=== PATIENT | male | born 1975 | race Caucasian/White ===

== ENCOUNTER 2018-03-09 11:31 | Inpatient (IN) | payer OTHER ==
[~2018-03-09] VITALS: Ht 157.5 cm; Wt 74.8 kg
[~2018-03-09 11:31] MED LIST: OXYC-133 PO; RIFA300C4 PO; SULF1TAB48 PO
--- NOTE | 2018-03-09 11:45 | NUR ---
PT BIB SELF, C/O ABSCESS TO LEFT AC POST HEROIN INJECTION X 2 DAYS AGO. ALERT AND ORIENTED X 4, VERBALLY RESPONSIVE AND ABLE TO MAKE NEEDS KNOWN. ON ROOM AIR, BREATHING EVENLY AND UNLABORED. AMBULATORY WITH STEADY GAIT. CONNECTED TO THE MONITOR AND PULSE OX. KEPT COMFORTABLE, WILL CONTINUE TO MONITOR ACCORDINGLY.
[2018-03-09] MEDS ORDERED: LIDOCAINE 1%-EPI 1:100,000 20 ML VIAL ONE (11:58)
[2018-03-09] MEDS ORDERED: VANCOMYCIN 1 GM in IV D5W 250 ML IV ONE (12:00)
[2018-03-09] MEDS ORDERED: PIPERACILLIN /TAZOBACTAM 3.375 G in IV D5W 50 ML IV ONE (12:00)
[2018-03-09 12:16] LABS: BASOPHILS # (AUTO) 0.1 /CMM (0.0-0.2); BASOPHILS % (AUTO) 0.7 % (0.0-2.0); EOSINOPHILS % (AUTO) 1.1 % (0.0-6.0); HEMATOCRIT 40 % (39-51); HEMOGLOBIN 13.6 g/dL (13.5-17.5); LYMPHOCYTES % (AUTO) 15.9 % (20.0-44.0); MEAN CORPUSCULAR HGB CONC 34 g/dl (31.0-36.0); MEAN CORPUSCULAR VOLUME 89 fL (80-96); MONOCYTES # (AUTO) 0.8 /CMM (0.1-1.30); MONOCYTES % (AUTO) 6.2 % (2.0-12.0); NEUTROPHILS # (AUTO) 9.4 /CMM (1.8-8.9); NEUTROPHILS % (AUTO) 76.1 % (43.0-81.0); PLATELET COUNT (AUTO) 280 /CMM (150-450); RED BLOOD CELL COUNT(AUTO) 4.51 MIL/uL (4.5-6.0); WHITE BLOOD COUNT (AUTO) 12.4 K/uL (4.3-11.0)
[2018-03-09 12:29] LABS: CALCIUM, SERUM 8.2 mg/dL (8.5-10.1); CARBON DIOXIDE 26 mmol/L (21-32); CHLORIDE 100 mmol/L (98-107); CREATININE 0.9 mg/dL (0.6-1.3); GLUCOSE 96 mg/dL (74-106); POTASSIUM 4.1 mmol/L (3.5-5.1); SODIUM SERUM 135 mmol/L (136-145); UREA NITROGEN, BLOOD 8 mg/dL (7-18)
[2018-03-09 12:34] LABS: ALANINE AMINOTRANSFERASE 30 U/L (12-78); ALBUMIN 2.5 g/dL (3.4-5.0); ALKALINE PHOSPHATASE 62 U/L (46-116); ASPARTATE AMINOTRANSFERASE 28 U/L (15-37); BILIRUBIN,DIRECT 0.1 mg/dL (0.0-0.2); BILIRUBIN,TOTAL 0.6 mg/dL (0.2-1.0); TOTAL PROTEIN, SERUM 6.9 g/dL (6.4-8.2)
[2018-03-09] MEDS ORDERED: HYDROMORPHONE INJ 0.5 MG/0.5 ML SYRINGE IV ONE (13:30)
[2018-03-09] MEDS ORDERED: HYDROMORPHONE INJ 2 MG/ML DISP.SYRIN ONE (13:30)
--- NOTE | 2018-03-09 13:36 | NUR ---
RECEIVED A CALL FROM PIPEFITTER HELPER FOR BED. PT IS GOING TO ROOM 314-1 M.
--- NOTE | 2018-03-09 14:08 | NUR ---
called [facility] and spoke to brooklyn QIU and report given for sivakumar.
[2018-03-09 14:15] VITALS: BP 152/84
--- NOTE | 2018-03-09 14:47 | NUR ---
patient wheeled via wheelchair in no apparent distress noted. going to room [address] [place] [address].
--- NOTE | 2018-03-09 14:50 | NUR ---
BELLHOP SERVICE CAPTAIN RECEIVED PATIENT FROM E.R. DEPT, A/OX4, AMBULATORY, SKIN ASSESSMENT ALLOWED BY PATIENT BUT ONLY ON BILATERAL ARMS, PATIENT REFUSED TO REMOVED PACKING ON THE LEFT AC DUE TO PAIN, PHOTOS TAKEN AND PLACED IN CHART, DRESSING RE-INFORCED, PATIENT ALSO REFUSED TO CHANGE INTO A GOWN AND TO HAVE BODY CHECK ON THE REST OF HIS BODY. HE STATED HE'S HAVING A HARD TIME MOVING DUE TO HIS LEFT ARM. EXPLAINED PROTOCOL, PATIENT VERBALIZED UNDERSTANDING, BUT HE SAID, "LATER". NEEDS ATTENDED AND MET, CALL LIGHT WITHIN REACH, WILL CONTINUE TO MONITOR.
[2018-03-09] MEDS ORDERED: ONDANSETRON HCL/PF 4 MG/2 ML VIAL IVP PRN (16:00)
[2018-03-09] MEDS ORDERED: Z GUARD REMEDY 2 OZ OINT TP PRN (16:00)
[2018-03-09] MEDS ORDERED: ZOLPIDEM TARTRATE 5 MG TABLET PO PRN (16:00)
[2018-03-09] MEDS ORDERED: MAGNESIUM HYDROXIDE 30 ML UDC PO PRN (16:00)
[2018-03-09] MEDS ORDERED: MAG HYDROX/AL HYDROX/SIMETH 30 ML UDC PO PRN (16:00)
[2018-03-09] MEDS ORDERED: ACETAMINOPHEN 325 MG TABLET PO PRN (16:00)
[2018-03-09] MEDS ORDERED: FEE PK DOSING 1 MIN EA MC ONE (16:31)
[2018-03-09] MEDS: NICOTINE PATCH (21MG) 21 MG PATCH.TD24 TD SCH (16:50)
[2018-03-09] MEDS: KETOROLAC TROMETHAMINE INJ 30 MG/ML VIAL IM PRN (16:50)
[2018-03-09] MEDS: PIPERACILLIN /TAZOBACTAM 3.375 G in IV D5W 50 ML IV SCH (18:17)
--- NOTE | 2018-03-09 18:34 | NUR ---
RN NOTES PATIENT A/OX4, BREATHING EVEN AND UNLABORED, NO SOB NOTED. PER PATIENT, FRIENDS ARE COMING OVER AND WILL BRING CIGARETTES. EXPLAINED RISKS OF SMOKING AT THIS TIME. BUT PATIENT IS INSISTING. PT STILL REFUSING TO HAVE BODY SKIN CHECKS, AND REFUSING TO WEAR A GOWN. NEEDS ATTENDED AND MET, CALL LIGHT WITHIN REACH, WILL ENDORSE TO WAREHOUSEMAN FOR OPAL.
--- NOTE | 2018-03-09 19:20 | NUR ---
RN OPENING NOTES PT AWAKE AND RESTING IN BED. PT COMPLAINS OF LEFT AC PAIN. WILL ADDRESS PT PAIN MANAGEMENT. NO COMPLAINTS OF SOB OR DISTRESS AT THIS TIME. PT HAS A RIGHT HAND #22 INTACT AND PATENT. NO COMPLAINTS OF PAIN, SOB OR DISTRESS AT THIS TIME. SAFETY PRECAUTIONS IN PLACE, BED IN LOWEST LOCKED POSITION, X2 SIDE RAILS UP AND CALL LIGHT WITHIN REACH. WILL CONTINUE TO MONITOR.
[2018-03-09] MEDS: HYDROCODONE/APAP 5/325MG 1 EACH TABLET PO PRN (19:48)
[2018-03-09 20:00] VITALS: BP 156/72
[2018-03-09] MEDS: VANCOMYCIN 1 GM in IV D5W 250ml IV SCH (21:00)
[2018-03-09] MEDS: LORAZEPAM INJ 2 MG/ML VIAL IV PRN (21:07)
[2018-03-10] MEDS: PIPERACILLIN /TAZOBACTAM 3.375 G in IV D5W 50 ML IV SCH ×3 (00:13→13:05)
[2018-03-10] MEDS: VANCOMYCIN 1 GM in IV D5W 250ml IV SCH (04:05)
--- NOTE | 2018-03-10 06:49 | NUR ---
RN CLOSING NOTES PT RESTING IN BED. NO COMPLAINTS OF PAIN, SOB OR DISTRESS AT THIS TIME. PT HAS A RIGHT HAND #22 INTACT AND PATENT. ALL PATIENT NEEDS MET OVERNIGHT. PT REQUESTED ATIVAN FOR ANXIETY, AND ZOFRAN FOR NAUSEA OVERNIGHT. SAFETY PRECAUTIONS IN PLACE, BED IN LOWEST LOCKED POSITION, X2 SIDE RAILS UP AND CALL LIGHT WITHIN REACH. WILL ENDORSE TO DAY SHIFT NURSE FOR CONTINUITY OF CARE.
--- NOTE | 2018-03-10 07:15 | NUR ---
RN OPENING NOTES RECEIVED PATIENT IN BED RESTING. A/OX3, ABLE TO MAKE NEEDS KNOWN. NOT IN ANY FORM OF DISTRESS, NO SOB. JUST MEDICATED WITH PAIN MEDS BY UYEN KENNEDY. STILL REFUSED BODY CHECK AND DOESNT WANT TO WEAR A GOWN, STILL ON HIS REGULAR CLOTHES, EXPLAINED PROTOCOL BUT STILL REFUSED, HE STATED "LATER MAN, IM TIRED.". IV ACCESS INTACT AND PATENT. KEPT PATIENT SAFE AND COMFORTABLE. BED IN LOW/LOCKED POSITION, SIDERAILS UPX2 WITH PADDING FOR SEIZURE PRECAUTIONS. CALL LIGHT IN REACH. WILL CONTINUE TO MONITOR ACCORDINGLY.
[2018-03-10] MEDS: PANTOPRAZOLE 40 MG TABLET.DR PO SCH (07:18)
[2018-03-10] MEDS: KETOROLAC TROMETHAMINE INJ 30 MG/ML VIAL IM PRN ×3 (07:18→20:10)
[2018-03-10 07:35] LABS: BASOPHILS # (AUTO) 0.1 /CMM (0.0-0.2); BASOPHILS % (AUTO) 0.6 % (0.0-2.0); EOSINOPHILS % (AUTO) 2.5 % (0.0-6.0); HEMATOCRIT 41 % (39-51); HEMOGLOBIN 13.8 g/dL (13.5-17.5); LYMPHOCYTES # (AUTO) 1.7 /CMM (0.8-4.8); LYMPHOCYTES % (AUTO) 20.8 % (20.0-44.0); MEAN CORPUSCULAR HGB CONC 33 g/dl (31.0-36.0); MEAN CORPUSCULAR VOLUME 90 fL (80-96); MONOCYTES # (AUTO) 0.5 /CMM (0.1-1.30); MONOCYTES % (AUTO) 5.5 % (2.0-12.0); NEUTROPHILS # (AUTO) 5.9 /CMM (1.8-8.9); NEUTROPHILS % (AUTO) 70.6 % (43.0-81.0); PLATELET COUNT (AUTO) 282 /CMM (150-450); RED BLOOD CELL COUNT(AUTO) 4.58 MIL/uL (4.5-6.0); WHITE BLOOD COUNT (AUTO) 8.4 K/uL (4.3-11.0)
[2018-03-10 08:00] VITALS: BP 159/88
[2018-03-10 08:04] LABS: ALBUMIN 2.4 g/dL (3.4-5.0); BILIRUBIN,TOTAL 0.5 mg/dL (0.2-1.0); CALCIUM, SERUM 8.5 mg/dL (8.5-10.1); CREATININE 1.2 mg/dL (0.6-1.3); MAGNESIUM 2.3 mg/dL (1.8-2.4); PHOSPHORUS 3.3 mg/dL (2.5-4.9); POTASSIUM 3.8 mmol/L (3.5-5.1); TOTAL PROTEIN, SERUM 6.8 g/dL (6.4-8.2)
[2018-03-10 08:15] LABS: BILIRUBIN,DIRECT 0.1 mg/dL (0.0-0.2)
[2018-03-10] MEDS: NICOTINE PATCH (21MG) 21 MG PATCH.TD24 TD SCH (08:28)
[2018-03-10] MEDS: LORAZEPAM INJ 2 MG/ML VIAL IV PRN ×2 (11:04→20:49)
--- NOTE | 2018-03-10 11:28 | NUR ---
WOUND CARE CONSULT: PT PRESENTS WITH WOUND TO LEFT ANTECUBITAL AREA, S/P I&D IN E.R. RECOMMEND SURGICAL CONSULT/FOLLOW UP. PT IS AMBULATORY AND CONTINENT. PT REFUSED TO HAVE WOUND PACKED AT THIS TIME AND STATED "MAYBE LATER". WILL SEE PRN.
[2018-03-10] MEDS ORDERED: MORPHINE SULFATE INJ 2 MG/ML DISP.SYRIN IV ONE (12:00)
--- NOTE | 2018-03-10 12:00 | NUR ---
WOUND DEBRIDEMENT DONE BY DR RICHARDSON AND JOSE BUCK. PATIENT TOLERATED WELL. CONSENT SIGNED.
[2018-03-10] MEDS ORDERED: HYDROMORPHONE INJ 2 MG/ML DISP.SYRIN IV ONE (12:30)
[2018-03-10] MEDS ORDERED: VANCOMYCIN 0.75 GM in IV D5W 250 ML IV SCH (14:00)
--- NOTE | 2018-03-10 14:29 | NUR ---
Social service consult requested by Dr. Sharma for drug abuse. Pt. is a 42 year old male who was admitted to [facility] for cellulitis. CONCHITA met with pt. bedside. Pt. is alert and oriented x 4. Pt's came to [facility] complaining of left upper extremity pain after injecting heroin. Pt. lives with couple of friends at [address] [place] [address] in [facility]. Pt. has no emergency contact at this time. Pt's drug of choice is Heroin and he last used two days ago. Pt. also drinks a pint of vodka daily. Pt. smokes a pack of cigarettes per day. Pt. has prior history of attending a drug treatment program but is unable to provide more information regarding when and where. CONCHITA offered pt. alcohol and drug treatment programs, however pt. declined stating he has been accepted at [facility] and will be going there once he is discharged from the hospital. Pt.states he has a diagnosis of Depression and Anxiety but is not currently on any medication for it. Pt. denies suicidal and homicidal ideations and visual/auditory hallucinations at this time. No other social service needs are requested at this time. CONCHITA updated watch caser Nancie Green regarding pt's discharge plan. SW is available, if needed.
[2018-03-10 15:34] VITALS: BP 149/83
[2018-03-10] MEDS: LACTOBACILLUS RHAMNOSUS GG 1 EACH CAP.SPRINK PO SCH (16:33)
--- NOTE | 2018-03-10 18:30 | NUR ---
PATIENT REPORTED THAT HIS IV ACCESS GOT PULLED OUT. CHECKED IV CATHETER INTACT. APPLIED PRESSURE, NO BLEEDING, NO COMPLICATIONS.
--- NOTE | 2018-03-10 18:55 | NUR ---
ATTEMPTED TO INSERT NEW IV ACCESS BUT UNSUCCESSFUL. PATIENT IS HARD STICK. WILL ENDORSED TO NIGHT RN.
--- NOTE | 2018-03-10 19:31 | NUR ---
PATIENT IN STABLE CONDITION. ALL NEEDS ATTENDED AND PROVIDED, ALL DUE MEDICATIONS ADMINISTERED ORDERED. KEPT PATIENT SAFE AND COMFORTABLE. BED IN LOW/LOCKED POSITION, SIDERAILS UPX2, CALL LIGHT IN REACH. ENDORSED TO NIGHT RN FOR OPAL
--- NOTE | 2018-03-10 19:35 | NUR ---
MS RN NOTE: PATIENT RESTING IN BED, NO ACUTE DISTRESS NOTED, FRIEND AT BEDSIDE. BREATHING EVEN AND UNLABORED, NO SOB NOTED. PATIENT NEEDS NEW IV, WILL TRY TO START IV. BED LOCKED AND IN LOWEST POSITION, CALL LIGHT IN REACH. WILL CONTINUE TO MONITOR.
[2018-03-10 20:00] VITALS: BP 131/78
--- NOTE | 2018-03-10 20:15 | NUR ---
MS RN NOTE: NEW IV STARTED TO RIGHT HAND #22 WITH GOOD BLOOD RETURN. PATIENT COMPLAINS OF PAIN TO LEFT ARM 9/10, TORADOL 30MG IM GIVEN PER MD ORDER. WILL CONTINUE TO MONITOR.
[2018-03-10] MEDS: CLINDAMYCIN 600 MG in IV D5W 50 ML IV SCH (20:30)
--- NOTE | 2018-03-10 21:00 | NUR ---
MS RN NOTE: PATIENT COMPLAINS OF ANXIOUS/WITHDRAWAL, ATIVAN 1MG IV GIVEN PER MD ORDER. WILL CONTINUE TO MONITOR.
[2018-03-11] MEDS: CLINDAMYCIN 600 MG in IV D5W 50 ML IV SCH ×3 (04:19→20:17)
[2018-03-11] MEDS: LORAZEPAM INJ 2 MG/ML VIAL IV PRN ×4 (04:19→22:33)
--- NOTE | 2018-03-11 04:20 | NUR ---
MS RN NOTE: PATIENT COMPLAINS OF ANXIOUS/WITHDRAWAL, ATIVAN 1MG IV GIVEN PER MD ORDER. WILL CONTINUE TO MONITOR.
--- NOTE | 2018-03-11 06:05 | NUR ---
MS RN NOTE: PATIENT RESTING IN BED, NO ACUTE DISTRESS NOTED, FRIEND AT BEDSIDE. BREATHING EVEN AND UNLABORED, NO SOB NOTED. IV TO RIGHT HAND IN PLACE. BED LOCKED AND IN LOWEST POSITION, CALL LIGHT IN REACH. WILL ENDORSE TO DAY NURSE TO CONTINUE WITH PLAN OF CARE.
[2018-03-11 07:06] LABS: BASOPHILS % (AUTO) 0.4 % (0.0-2.0); EOSINOPHILS % (AUTO) 0.7 % (0.0-6.0); HEMATOCRIT 36 % (39-51); HEMOGLOBIN 12.3 g/dL (13.5-17.5); LYMPHOCYTES # (AUTO) 1.8 /CMM (0.8-4.8); LYMPHOCYTES % (AUTO) 22.7 % (20.0-44.0); MEAN CORPUSCULAR HGB CONC 34 g/dl (31.0-36.0); MEAN CORPUSCULAR VOLUME 89 fL (80-96); MONOCYTES # (AUTO) 0.3 /CMM (0.1-1.30); MONOCYTES % (AUTO) 3.8 % (2.0-12.0); NEUTROPHILS # (AUTO) 5.6 /CMM (1.8-8.9); NEUTROPHILS % (AUTO) 72.4 % (43.0-81.0); PLATELET COUNT (AUTO) 284 /CMM (150-450); RED BLOOD CELL COUNT(AUTO) 4.04 MIL/uL (4.5-6.0); WHITE BLOOD COUNT (AUTO) 7.8 K/uL (4.3-11.0)
[2018-03-11 07:17] LABS: MAGNESIUM 1.8 mg/dL (1.8-2.4); PHOSPHORUS 3.5 mg/dL (2.5-4.9); POTASSIUM 3.6 mmol/L (3.5-5.1)
[2018-03-11] MEDS: PANTOPRAZOLE 40 MG TABLET.DR PO SCH (07:30)
--- NOTE | 2018-03-11 07:34 | NUR ---
MS/RN OPENING NOTE PATIENT IN BED ASLEEP, EASILY AROUSABLE. A/O X 3. NO SIGNS OF ACUTE DISTRESS. NO COMPLAIN OF PAIN OR DISCOMFORT. ALL NEEDS ATTENDED TO. CALL LIGHT WITHIN REACH. WILL CONTINUE TO MONITOR TO ENSURE SAFETY.
[2018-03-11 08:00] VITALS: BP 153/61
--- NOTE | 2018-03-11 08:00 | NUR ---
MS/RN PATIENT REFUSED VITALS SIGNS AND MORNING MEDICATIONS OFFERED X 3 WITH RISKS AND BENEFITS EXPLAINED, CONTINUE TO REFUSE AND WANTED TO SLEEP ONLY. WILL NOTIFY DR. CHANI Crowe FOR FURTHER ORDERS.
[2018-03-11] MEDS: LACTOBACILLUS RHAMNOSUS GG 1 EACH CAP.SPRINK PO SCH ×2 (08:30→16:26)
[2018-03-11] MEDS: NICOTINE PATCH (21MG) 21 MG PATCH.TD24 TD SCH (08:30)
[2018-03-11] MEDS: HYDROCODONE/APAP 5/325MG 1 EACH TABLET PO PRN ×3 (10:33→19:45)
[2018-03-11] MEDS: KETOROLAC TROMETHAMINE INJ 30 MG/ML VIAL IM PRN (13:50)
[2018-03-11 16:00] VITALS: BP 127/82
--- NOTE | 2018-03-11 17:20 | NUR ---
MS/RN PATIENT LEFT HOSPITAL WITHOUT ASSISTANCE WITH IV LINE ON. PER SECURITY PATIENT SEEN WALKING OUT TOWARDS [facility]. AFTER 20 MINUTES PATIENT RETURNED PER PATIENT HE LEFT SO HE CAN BRING HIS SISTER. DR CHANI MORRELL AT BEDSIDE NOTIFIED. PATIENT IV SITE APPEARS CLEAN DRY AND INTACT, LEFT AC DRESSING INTACT. PATIENT A/O X 4. NO SIGNS OF ACUTE DISTRESS. EXPLAINED PATIENT NOT TO LEAVE HOSPITAL WITHOUT ANY ASSISTANCE. ALL NEEDS ATTENDED TO. CALL LIGHT WITHIN REACH. WILL CONTINUE TO MONITOR TO ENSURE SAFETY. V/S 145/93, 93, 20, 98.2, 97%.
[2018-03-11] MEDS: HYDROMORPHONE INJ 2 MG/ML DISP.SYRIN IV PRN (17:56)
--- NOTE | 2018-03-11 18:13 | NUR ---
MS/RN CLOSING NOTE PATIENT IN BED IN STABLE CONDITION. A/O X 4. NO SIGNS OF ACUTE DISTRESS. NO COMPLAIN OF PAIN OR DISCOMFORT. ALL NEEDS ATTENDED TO. CALL LIGHT WITHIN REACH. WILL ENDORSE TO NEXT SHIFT FOR CONTINUITY OF CARE.
--- NOTE | 2018-03-11 19:10 | NUR ---
RN INITIAL NOTE RECEIVED PATIENT IN BED, VISITOR AT BEDSIDE. BREATHING EVEN AND UNLABORED. NOT IN ANY DISTRESS. CALL LIGHT WITHIN REACH. BED IN LOW, LOCKED POSITION. WILL CONTINUE TO MONITOR ACCORDINGLY
[2018-03-11 20:00] VITALS: BP 157/88
--- NOTE | 2018-03-11 22:38 | NUR ---
MS RN NOTE: PATIENT COMPLAINS OF WITHDRAWAL, ATIVAN 1MG IV GIVEN PER MD ORDER. WILL CONTINUE TO MONITOR.
[2018-03-12] MEDS: HYDROMORPHONE INJ 2 MG/ML DISP.SYRIN IV PRN ×3 (03:07→11:52)
--- NOTE | 2018-03-12 03:10 | NUR ---
RN NOTES PATIENT C/O PAIN ON L ARM, 12/04. DILAUDID 0.5MG GIVEN ORDERED. WASTED THE THE WITH ANOTHER RN. WILL CONTINUE TO MONITOR
[2018-03-12 04:00] VITALS: BP 130/84
[2018-03-12] MEDS: CLINDAMYCIN 600 MG in IV D5W 50 ML IV SCH (04:45)
[2018-03-12] MEDS: HYDROCODONE/APAP 5/325MG 1 EACH TABLET PO PRN (06:14)
--- NOTE | 2018-03-12 06:39 | NUR ---
MS RN CLOSING NOTES PATIENT RESTING IN BED, ALERT AND ORIENTED X 3. BREATHING EVEN AND UNLABORED. NO COMPLAINTS OF PAIN OF THIS TIME. IV ON RIGHT THUMB INTACT AND PATENT, S/L. ALL NEEDS ATTENDED TO. ALL DUE MEDICATIONS GIVEN ORDERED. CALL EPSTEIN WITHIN REACH. BED IN LOW, LOCKED POSITION. WILL ENDORSE OPAL TO ONCOMING RN
--- NOTE | 2018-03-12 07:00 | NUR ---
MSRN. PT RECEIVED A&0X3, TOLERATING ROOM AIR WITHOUT DISTRESS. PT REPORTS 10/10 PAIN TO L AC, DRESSING CLEAN AND INTACT. PT WITH FRIEND AT BEDSIDE. PT ENDORSED GOING TO SMOKE WITHOUT ESCORT- CN AND SUPERINTENDENT BOARD MILL AP AWARE AND PT AGREES TO USE REQUEST OPTICAL WORKER ESCORT. PT BED IN LOWEST LOCKED POSITON WITH HANDRILASX2 AND CALL EPSTEIN WITHIN REACH, PT BRIEFED ON TODAY'S POC AND IS WITHOUT CONCERN OR COMPLAINT TA THIS TIME.
[2018-03-12 07:21] LABS: CALCIUM, SERUM 8.5 mg/dL (8.5-10.1); CREATININE 0.9 mg/dL (0.6-1.3); POTASSIUM 3.5 mmol/L (3.5-5.1)
[2018-03-12] MEDS: PANTOPRAZOLE 40 MG TABLET.DR PO SCH (07:40)
[2018-03-12 08:00] VITALS: BP 136/74
[2018-03-12] MEDS: LACTOBACILLUS RHAMNOSUS GG 1 EACH CAP.SPRINK PO SCH (08:23)
[2018-03-12] MEDS: NICOTINE PATCH (21MG) 21 MG PATCH.TD24 TD SCH (08:23)
--- NOTE | 2018-03-12 09:30 | NUR ---
PT WENT TO SMOKE WITHOUT ESCORT, ASSOCIATE ND MANAGER SHOP MADE AWARE. PT REQUESTED AGAIN NOT TO DO SO.
[2018-03-12] MEDS: KETOROLAC TROMETHAMINE INJ 30 MG/ML VIAL IM PRN (10:31)
--- NOTE | 2018-03-12 11:55 | NUR ---
MSRN. PT STATED HE WAS GETTING READY TO GO AND HIS LIFT WAS WAITING. I INFORMED HIS THE D/C ORDER WAS NOT YET READY, BUT I WOULD START BY REMOVING IV PT BECAME DISTRACTED AND ' TOO BUSY FOR THAT', WITH CALM PRESSURE PT AGREED AND IVC REMOVED FROM R THUMB, NAD AT SITE.
--- NOTE | 2018-03-12 12:00 | NUR ---
JEFFERY. PT HAS SPOKEN TO MD AND RECEIVED SCRIPT FROM MD. PT STATING HE DOESN'T WANT TO WAIT FOR [facility] D/C PACKET AND WANTS TO GO. PT REFUSING PHOTOS AND WOUND CARE - BASIC WOUND CARE SUPPLIES PROVIDED. PT REFUSING EDUCATION ETC. DUMPER OPERATOR AP PRESENT, OK TO GO.
--- NOTE | 2018-03-12 12:52 | NUR ---
PT RETURNED WANTING D/C PACKET. PT BRIEFED ON [facility] D/C PACKET, EDUCATION, AGAIN SCRIPTS AND PT, ALTHOUGH PASSIVE AND RUSHED, STATES UNDERSTANDING, RESOURCES AND INTENT TO FOLLOW POC.
== END 2018-03-12 12:00 | disposition home or self-care (01) | DRG 364 ==
LOC: ER 11:32 → MED 14:20
PROVIDERS: ADMIT Student in an Organized Health Care Education/Training Program; ATTEND Hospitalist
PROC: 0H9CXZZ Drainage of Left Upper Arm Skin, External Approach (ICD-10-PCS; 2018-03-09)
PROC: 0KB80ZZ Excision of Left Upper Arm Muscle, Open Approach (ICD-10-PCS; principal; 2018-03-10)
DX: L03.114 Cellulitis of left upper limb (principal); E44.0 Moderate protein-calorie malnutrition; E87.1 Hypo-osmolality and hyponatremia; F11.20 Opioid dependence, uncomplicated; E66.9 Obesity, unspecified; F17.210 Nicotine dependence, cigarettes, uncomplicated; L02.414 Cutaneous abscess of left upper limb; Z91.14 Patient's other noncompliance with medication regimen; Z68.30 Body mass index [BMI] 30.0-30.9, adult; Z86.19 Personal history of other infectious and parasitic diseases; F10.20 Alcohol dependence, uncomplicated
CPT/HCPCS: 36415; 71045-TC; 80048-TC; 80061-TC; 80076-TC; 80202-TC; 83605-TC; 83735-TC; 84100-TC; 84484-TC; 85025-TC; 85730-TC; 87040-TC; 87070-TC; 87081-TC; A6402; A6403; A6407; G0378; J1170; J1885; J2060; J2405; J2543; J3370; J3490; J7050; J7060